=== PATIENT | female | born 1990 | race Caucasian/White ===

== ENCOUNTER 2017-02-08 10:07 | Emergency (ER) | payer OTHER ==
[2017-02-08 10:55] LABS: BASOPHILS % (AUTO) 0.5 %; EOSINOPHILS # (AUTO) 0.2 10^3/uL (0.0-0.7); EOSINOPHILS % (AUTO) 2.8 %; HCT - HEMATOCRIT 38.7 % (37.0-47.0); HGB - HEMOGLOBIN 12.7 g/dL (12.0-16.0); LYMPHOCYTES # (AUTO) 1.7 10^3/uL (1.5-3.5); LYMPHOCYTES % (AUTO) 29.5 %; MEAN CORPUSCULAR HEMOGLOBIN 26.3 pg (27.0-31.0); MEAN CORPUSCULAR HGB CONC 32.9 g/dL (32.0-36.0); MEAN CORPUSCULAR VOLUME 80.1 fL (81.0-99.0); MEAN PLATELET VOLUME 8.4 fL (7.9-10.8); MONOCYTES # (AUTO) 0.6 10^3/uL (0.0-1.0); MONOCYTES % (AUTO) 9.8 %; NEUTROPHILS # (AUTO) 3.3 10^3/uL (1.5-6.6); NEUTROPHILS % (AUTO) 57.4 %; RED BLOOD COUNT 4.83 10^6/uL (4.20-5.40); RED CELL DISTRIBUTION WIDTH 17.9 % (12.0-15.0); UNCORRECTED WHITE BLOOD COUNT 5.7 x10^3/uL; WHITE BLOOD COUNT 5.7 x10^3/uL (4.8-10.8)
[2017-02-08 11:06] LABS: CALCIUM 9.5 mg/dL (8.5-10.3); CREATININE 0.7 mg/dL (0.4-1.0); POTASSIUM 3.9 mmol/L (3.5-5.0)
--- NOTE | 2017-02-08 11:37 | ED Physician Documentation ---
History of Present Illness - Stated complaint Stated Complaint: CHEST PX/SOA - Chief complaint Chief Complaint: Cardiac - Additonal information Additional information: hx from pt 27 female s/p hyst no hx DVT PE or CAD, no known fhx DVT PE CAD either smoker no OCP recent long plane trip 3 days of chest tightness and sense of not being able to draw a deep breath, dry cough, no fever no abd pain, no NVD, no leg pain swelling also on a new diet pill which could be causing the sx Review of Systems Constitutional: denies: Fever, Chills Cardiac: reports: Chest pain / pressure. 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 - Present Medications Home Medications: Ambulatory Orders Medication Instructions Recorded Confirmed Phentermine HCl 15 mg PO DAILY 02/08/17 02/08/17 - Allergies Allergies/Adverse Reactions: Allergies Allergy/AdvReac Type Severity Reaction Status Date / Time codeine Allergy Intermediate Emesis Verified 01/22/16 15:00 - Social History Does the pt smoke?: Yes Smoking Status: Current every day smoker Does the pt drink ETOH?: Yes Does the pt have substance abuse?: No - Immunizations Immunizations are current?: Yes PD ED PE NORMAL - Vitals Vital signs reviewed: Yes - General General: Alert and oriented X 3 - Cardiac Cardiac: RRR, No murmur - Respiratory Respiratory: No respiratory distress, Clear bilaterally - Abdomen Abdomen: Soft, Non tender - Derm Derm: Normal color - Extremities Extremities: No deformity, No edema, No calf tenderness / cord - Neuro Neuro: Alert and oriented X 3, No motor deficit, No sensory deficit Results - Vitals Vitals: Vital Signs - 24 hr 02/08/17 02/08/17 02/08/17 10:09 10:17 10:54 Temperature 36.5 C Heart Rate 67 75 Respiratory 18 16 Rate Blood Pressure 110/77 118/78 Blood Pressure 121/74 [Left] Blood Pressure 113/76 [Right] O2 Saturation 100 99 02/08/17 02/08/17 12:08 13:43 Temperature Heart Rate 66 85 Respiratory 22 18 Rate Blood Pressure 126/92 H 119/75 Blood Pressure [Left] Blood Pressure [Right] O2 Saturation 100 100 Oxygen O2 Source Room air - EKG (time done) 1020 Rate: Rate (enter#) Rhythm: NSR Salome: Normal Intervals: Normal [place] QRS: Normal Ischemia: Normal ST segments - Labs Labs: Laboratory Tests 02/08/17 02/08/17 02/08/17 10:49 10:49 10:49 WBC 5.7 RBC 4.83 Hgb 12.7 Hct 38.7 MCV 80.1 L MCH 26.3 L MCHC 32.9 RDW 17.9 H Plt Count 184 MPV 8.4 Neut # 3.3 Lymph # 1.7 [place] # 0.6 Eos # 0.2 Baso # 0.0 Absolute Nucleated RBC 0.00 Nucleated RBCs 0.0 D-Dimer < 200.0 L Sodium 137 Potassium 3.9 Chloride 107 Carbon Dioxide 25 Anion Gap 5.0 L BUN 7 Creatinine 0.7 Estimated GFR (MDRD) 99 Glucose 94 Calcium 9.5 Troponin I 02/08/17 10:49 WBC RBC Hgb Hct MCV MCH MCHC RDW Plt Count MPV Neut # Lymph # [place] # Eos # Baso # Absolute Nucleated RBC Nucleated RBCs D-Dimer Sodium Potassium Chloride Carbon Dioxide Anion Gap BUN Creatinine Estimated GFR (MDRD) Glucose Calcium Troponin I < 0.04 PD MEDICAL DECISION MAKING - ED course ED course: d dimer neg but pt not low risk so does not adequately rule out PE - got CTPA which was neg also EKG and trop neg after sx > 24 hr rule out ACS not anemic no pna atelectasis effusion pneumo etc on CT may be due to the phentermine after all will dc with advice to dc same Departure - Departure Disposition: 01 Home, Self Care Clinical Impression: Chest pain Qualifiers: Chest pain type: unspecified Qualified Code(s): R07.9 - Chest pain, unspecified Dyspnea Qualifiers: Dyspnea type: unspecified Qualified Code(s): R06.00 - Dyspnea, unspecified Condition: Good Instructions: ED Chest Pain Atypical Unkn Cause Follow-Up: SHIELA MCKEON [Primary Care Provider] - Comments: All of your tests came back fine The EKG and tropnin does not suggest a heart attack The CT scan does not show a blood clot in your lung. The CT also did not show an aneurysm or tear of your aorta, fluid around your lungs or heart, or any other problems. Having ruled out all the lung and heart possibilities, i think your symptoms may be due to the phentermine I think it is safe for you to go home, please stop taking the phentermine Follow up with your PMD for a recheck this week. Return if worse or new symptoms develop Forms: Activity restrictions
[2017-02-08] MEDS ORDERED: IOPAMIDOL-300 100 ML VIAL IVP ONE (12:07)
--- NOTE | 2017-02-08 12:42 | CT Preliminary Report ---
Exam: CT Chest Angio (PE) IMPRESSION: 1. No evidence of pulmonary embolus, aortic aneurysm or aortic dissection. 2. Clear lungs. No acute consolidation. 3. No acute osseous abnormalities. [facility] SITE ID: [id number]
--- NOTE | 2017-02-08 12:45 | CT Report ---
EXAM: CT ANGIOGRAM CHEST EXAM DATE: 02/08/2017 12:06 PM. CLINICAL HISTORY: Chest pain. Shortness of air. Smoker. Recent long plane flight. COMPARISON: None. TECHNIQUE: Routine helical imaging was performed through the chest in the pulmonary arterial phase. I V Contrast: 100 cc of Isovue-300. Reconstructions: Coronal 3-D MIP reconstructions.Sagittal and coron al. In accordance with CT protocol optimization, one or more of the following dose reduction techniques w ere utilized for this exam: automated exposure control, adjustment of mA and/or KV based on patient s ize, or use of iterative reconstructive technique. FINDINGS: Pulmonary Arteries: Diagnostic quality: Adequate through the segmental arteries. No evidence of acute or chronic pulmonar y emboli. Main pulmonary artery is prominent. Lungs/Pleura: No consolidation. No vascular congestion. No pneumothorax. No endobronchial obstruction . Mediastinum: The visualized thyroid gland is unremarkable. No enlarged mediastinal or hilar lymph nod es. Anterior mediastinal soft tissue density may represent residual thymic tissue. No significant con cave contour, displacement or mass effect. Heart size is normal. Thoracic Aorta: Unremarkable. Upper Abdomen: Unremarkable. Other: No acute osseous abnormalities are identified. Bilateral breast implants are present. IMPRESSION: 1. No evidence of pulmonary embolus, aortic aneurysm or aortic dissection. 2. Clear lungs. No acute consolidation. 3. No acute osseous abnormalities. [facility] Referring Provider Line: [phone] SITE ID: [id number]
[2017-02-08 13:44] VITALS: BP 119/75
== END 2017-02-08 14:18 | disposition home or self-care (01) ==
LOC: ED 10:07
DX: R07.9 Chest pain, unspecified (principal); R06.00 Dyspnea, unspecified; F17.200 Nicotine dependence, unspecified, uncomplicated
CPT/HCPCS: 36415; 71275; 80048; 84484; 85025; 85379; 93005; 99284; Q9967

== ENCOUNTER 2018-03-28 19:14 | Emergency (ER) | payer OTHER ==
--- NOTE | 2018-03-28 20:12 | ED Physician Documentation ---
PD HPI CHEST PAIN - Stated complaint Stated Complaint: TIGHT CHEST - Chief complaint Chief Complaint: Cardiac - History obtained from History obtained from: Patient - History of Present Illness Timing - onset: How many days ago (3) Timing - duration: Days Timing - details: Gradual onset, Constant, Waxing and waning Quality: Tightness Location: Substernal Radiation: Other (no radiation) Improved by: Nothing Worsened by: Other (no exacerbating factors) Associated symptoms: No: Shortness of air, Diaphoresis, Nausea, Vomiting, Feeling faint / dizzy, General Weakness, Palpitations, Cough Similar symptoms before: Has not had sx before Recently seen: Not recently seen - Additional information Additional information: patient complains of three days of chest tightness and heaviness. She also notices that when she drinks liquids, she has a burning sensation in her midline chest which she says is like reflux. She denies fevers, denies sweats. Review of Systems Constitutional: reports: Reviewed and negative Cardiac: reports: Chest pain / pressure. 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 - Present Medications Home Medications: Ambulatory Orders Medication Instructions Recorded Confirmed Lidocaine Viscous 2% [Xylocaine 15 ml MM QID PRN #1 bottle 03/28/18 Viscous 2%] - Allergies Allergies/Adverse Reactions: Allergies Allergy/AdvReac Type Severity Reaction Status Date / Time codeine Allergy Intermediate Emesis Verified 03/28/18 19:33 - Social History Does the pt smoke?: Yes Smoking Status: Current every day smoker Does the pt drink ETOH?: Yes Does the pt have substance abuse?: No - Immunizations Immunizations are current?: Yes PD ED PE NORMAL - Vitals Vital signs reviewed: Yes - General General: Alert and oriented X 3, No acute distress, Well developed/nourished - Cardiac Cardiac: RRR, No murmur - Respiratory Respiratory: No respiratory distress, Clear bilaterally - Abdomen Abdomen: Soft, Non tender - Extremities Extremities: No edema Results - Vitals Vitals: Oxygen O2 Source Room air - EKG (time done) No standard instances Rate: Rate (enter#) (74) Rhythm: NSR Ewing: Normal Intervals: Normal [place] QRS: Normal Ischemia: Normal ST segments - Labs Labs: Laboratory Tests 03/28/18 03/28/18 03/28/18 21:02 21:02 21:02 WBC 9.1 RBC 4.40 Hgb 13.8 Hct 40.9 MCV 93.0 MCH 31.5 H MCHC 33.8 RDW 12.3 Plt Count 177 MPV 9.5 Neut # (Auto) 6.1 Lymph # (Auto) 2.1 [place] # (Auto) 0.7 Eos # (Auto) 0.2 Baso # (Auto) 0.1 Absolute Nucleated RBC 0.01 Nucleated RBC % 0.1 Sodium 136 Potassium 3.3 L Chloride 104 Carbon Dioxide 28 Anion Gap 4.0 L BUN 11 Creatinine 0.6 Estimated GFR (MDRD) 117 Glucose 105 H Calcium 8.9 Troponin I < 0.04 - Rads (name of study) chest xray Radiology: Prelim report reviewed, See rad report PD MEDICAL DECISION MAKING - ED course Complexity details: reviewed results, re-evaluated patient, considered differential, d/w patient - Sepsis Event Vital Signs: Oxygen O2 Source Room air Departure - Departure Disposition: 01 Home, Self Care Clinical Impression: Chest pain Qualifiers: Chest pain type: unspecified Qualified Code(s): R07.9 - Chest pain, unspecified Condition: Good Instructions: ED Chest Pain Atypical Unkn Cause Follow-Up: SHIELA MCKEON [Primary Care Provider] - Prescriptions: Lidocaine Viscous 2% [Xylocaine Viscous 2%] 15 ml MM QID PRN #1 bottle PRN Reason: throat/chest burning Comments: Your potassium was a little low tonight (the lower end of the normal range is 3.5; your result was 3.3). This is not low enough to cause symptoms or concern at this time, but your doctor might want to recheck this level within the next few weeks. Discharge Date/Time: 03/28/18 21:53
[2018-03-28] MEDS ORDERED: MAG HYDROX/AL HYDROX/SIMETH 30 ML UDC PO STA (20:32)
[2018-03-28] MEDS ORDERED: LIDOCAINE VISCOUS 2% 15 ML UDC MM STA (20:32)
[2018-03-28 21:08] LABS: BASOPHILS # (AUTO) 0.1 10^3/uL (0.0-0.1); BASOPHILS % (AUTO) 0.6 %; EOSINOPHILS # (AUTO) 0.2 10^3/uL (0.0-0.7); EOSINOPHILS % (AUTO) 1.8 %; HGB - HEMOGLOBIN 13.8 g/dL (12.0-16.0); LYMPHOCYTES # (AUTO) 2.1 10^3/uL (1.5-3.5); LYMPHOCYTES % (AUTO) 23.1 %; MEAN CORPUSCULAR HEMOGLOBIN 31.5 pg (27.0-31.0); MEAN CORPUSCULAR HGB CONC 33.8 g/dL (32.0-36.0); MEAN PLATELET VOLUME 9.5 fL (7.9-10.8); MONOCYTES # (AUTO) 0.7 10^3/uL (0.0-1.0); MONOCYTES % (AUTO) 7.5 %; NEUTROPHILS # (AUTO) 6.1 10^3/uL (1.5-6.6); PLT - PLATELET COUNT 177 10^3/uL (130-450); RED CELL DISTRIBUTION WIDTH 12.3 % (12.0-15.0); WHITE BLOOD COUNT 9.1 x10^3/uL (4.8-10.8)
--- NOTE | 2018-03-28 21:08 | XRAY Report ---
Reason: chest pain Procedure Date: 03/28/2018 Accession Number: [id number] / [id number] Procedure: XR - Chest 2 View X-Ray CPT Code: 53078 FULL RESULT: EXAM: CHEST RADIOGRAPHY EXAM DATE: 03/28/2018 08:47 PM. CLINICAL HISTORY: Chest pain. COMPARISON: None. TECHNIQUE: 2 views. FINDINGS: Lungs/Pleura: No focal opacities evident. No pleural effusion. No pneumothorax. Normal volumes. Mediastinum: Heart and mediastinal contours are unremarkable. Other: None. IMPRESSION: Normal 2-view chest radiography. [facility]
[2018-03-28 21:16] LABS: CALCIUM 8.9 mg/dL (8.5-10.3); CREATININE 0.6 mg/dL (0.4-1.0)
[2018-03-28 22:23] VITALS: BP 107/62
== END 2018-03-28 21:53 | disposition home or self-care (01) ==
LOC: ED 19:14
DX: F17.200 Nicotine dependence, unspecified, uncomplicated (principal); R07.9 Chest pain, unspecified
CPT/HCPCS: 36415; 71046; 80048; 84484; 85025; 93005; 99283; A9270

== ENCOUNTER 2018-05-14 13:29 | Emergency (ER) | payer OTHER ==
[2018-05-14 14:08] LABS: BILIRUBIN,URINE NEGATIVE (NEGATIVE); GLUCOSE, URINE (UA) NEGATIVE (NEGATIVE); KETONES,URINE (UA) NEGATIVE (NEGATIVE); LEUKOCYTE ESTERASE, URINE SMALL (NEGATIVE); NITRITE,URINE NEGATIVE (NEGATIVE); OCCULT BLOOD,URINE MODERATE (NEGATIVE); PROTEIN,URINE NEGATIVE (NEGATIVE); UROBILINOGEN,URINE 0.2 (NORMAL) E.U./dL (NORMAL)
[2018-05-14 14:10] LABS: CLARITY,URINE HAZY (CLEAR)
--- NOTE | 2018-05-14 14:13 | ED Physician Documentation ---
History of Present Illness - Stated complaint Stated Complaint: FEMALE - Chief complaint Chief Complaint: General - History obtained from History obtained from: Patient - History of Present Illness Timing: Last night (Since last night she has had urinary burning and dysuria with frequency but no flank pain, fevers, or nausea or vaginal discharge.) Review of Systems Constitutional: denies: Fever, Chills GI: denies: Abdominal Pain, Nausea, Vomiting : reports: Dysuria, Hematuria PD PAST MEDICAL HISTORY - Past Medical History Past Medical History: Yes Endocrine/Autoimmune: None GI: Hemorrhoids Psych: Depression Musculoskeletal: None - Past Surgical History Past Surgical History: Yes 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, 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, 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 - Present Medications Home Medications: Ambulatory Orders Medication Instructions Recorded Confirmed Nitrofurantoin Monohyd/M-Cryst 100 mg PO BID #10 capsule 05/14/18 [Macrobid 100 mg Capsule] Phenazopyridine HCl [Pyridium] 200 mg PO TID PRN #6 tablet 05/14/18 - Allergies Allergies/Adverse Reactions: Allergies Allergy/AdvReac Type Severity Reaction Status Date / Time codeine Allergy Intermediate Emesis Verified 05/14/18 13:39 - Social History Does the pt smoke?: Yes Smoking Status: Current every day smoker Does the pt drink ETOH?: Yes Does the pt have substance abuse?: No - Immunizations Immunizations are current?: Yes - POLST Patient has POLST: No PD ED PE NORMAL - Vitals Vital signs reviewed: Yes - General General: Alert and oriented X 3, No acute distress - Abdomen Abdomen: Soft, Non tender - Back Back: No CVA TTP - Neuro Neuro: Alert and oriented X 3, Normal speech Results - Vitals Vitals: Vital Signs - 24 hr 05/14/18 13:37 Temperature 36.9 C Heart Rate 75 Respiratory 18 Rate Blood Pressure 125/83 H O2 Saturation 99 Oxygen O2 Source Room air - Labs Labs: Laboratory Tests 05/14/18 13:35 Urine Color YELLOW Urine Clarity HAZY Urine pH 6.0 Ur Specific [place] 1.025 Urine Protein NEGATIVE Urine Glucose (UA) NEGATIVE Urine Ketones NEGATIVE Urine Occult Blood MODERATE H Urine Nitrite NEGATIVE Urine Bilirubin NEGATIVE Urine Urobilinogen 0.2 (NORMAL) Ur Leukocyte Esterase SMALL H Urine RBC 6-10 H Urine WBC 11-25 H Ur Squamous Epith Cells MOD Squamous H Urine Bacteria Few Ur Microscopic Review INDICATED Urine Culture Comments NOT INDICATED Urine HCG, Qual NEGATIVE Departure - Departure Disposition: Home, Self Care Clinical Impression: Cystitis Condition: Good Record reviewed to determine appropriate education?: Yes Instructions: ED UTI Cystitis Female Prescriptions: Nitrofurantoin Monohyd/M-Cryst [Macrobid 100 mg Capsule] 100 mg PO BID #10 capsule Phenazopyridine HCl [Pyridium] 200 mg PO TID PRN #6 tablet PRN Reason: dysuria Comments: Call your doctor to arrange a follow-up appointment, make the next available appointment. In the interim, return anytime if worse or if new symptoms develop.
[2018-05-14 14:16] LABS: HCG UR QUAL NEGATIVE
[2018-05-14 14:26] LABS: BACTERIA,URINE Few /HPF (None Seen); SQUAMOUS EPITHELIAL CELL,UR MOD Squamous (<= Few)
[2018-05-14] MEDS ORDERED: PHENAZOPYRIDINE 100 MG TABLET PO STA (14:48)
[2018-05-14] MEDS ORDERED: NITROFURANTOIN MACRO 100 MG CAPSULE PO STA (14:48)
[2018-05-14 15:04] VITALS: BP 128/72
== END 2018-05-14 15:01 | disposition home or self-care (01) ==
LOC: ED 13:29
DX: N30.91 Cystitis, unspecified with hematuria (principal); F17.200 Nicotine dependence, unspecified, uncomplicated
CPT/HCPCS: 81001; 81025; 99283; A9270; 81003; 87086

== ENCOUNTER 2018-08-05 12:52 | Emergency (ER) | payer OTHER ==
[2018-08-05] MEDS ORDERED: TETANUS/DIPHTHERIA/PERTUSSIS 0.5 ML SYRINGE IM ONE (14:29)
[2018-08-05] MEDS ORDERED: BUFFERED LIDOCAINE 10 ML SYRINGE SUBQ STA (14:29)
--- NOTE | 2018-08-05 14:31 | ED Physician Documentation ---
PD HPI UPPER EXT INJURY - Stated complaint Stated Complaint: FINGER LAC - Chief complaint Chief Complaint: Laceration - History obtained from History obtained from: Patient - History of Present Illness Location: Left, Finger Type of injury: Laceration Where injury occurred: Home Timing - onset: Today (1240pm) - Additonal information Additional information: She cut the tip of her nondominant/left index finger with a crab meat processor at home just prior to arrival. Tetanus is unknown. 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 - Present Medications Home Medications: Ambulatory Orders Medication Instructions Recorded Confirmed No Known Home Medications 08/05/18 08/05/18 - Allergies Allergies/Adverse Reactions: Allergies Allergy/AdvReac Type Severity Reaction Status Date / Time codeine Allergy Intermediate Emesis Verified 08/05/18 13:05 - Social History Does the pt smoke?: Yes Smoking Status: Current every day smoker Does the pt drink ETOH?: Yes Does the pt have substance abuse?: No - Immunizations Immunizations are current?: Yes - POLST Patient has POLST: No PD ED PE NORMAL - Vitals Vital signs reviewed: Yes - General General: Alert and oriented X 3, No acute distress - Extremities Extremities: Other (The pulp of the left index finger there is a 1 cm laceration without neurovascular compromise.) - Neuro Neuro: Alert and oriented X 3, Normal speech Results - Vitals Vitals: Vital Signs - 24 hr 08/05/18 13:03 Temperature 36.8 C Heart Rate 65 Respiratory 20 Rate Blood Pressure 140/67 H O2 Saturation 100 Oxygen O2 Source Room air Procedures - Laceration (location) L 2nd finger Length in cm: 1 Wound type: Linear Neurovascular status: Sensory intact, Motor intact, Vascular intact Anesthesia: Lidocaine 1%, With bicarb Wound Preparation: Betadine, Irrigated copiously NS Skin layer closure: Nylon, Interrupted, Size #-0 - enter number (5-0), Sutures - enter # (4) Other: Tetanus booster given Complexity: Simple Departure - Departure Disposition: 01 Home, Self Care Clinical Impression: Laceration Condition: Good Record reviewed to determine appropriate education?: Yes Instructions: ED Laceration Ext Sutr Stap Tape Comments: Come back for any signs of infection which would include: Redness, swelling, drainage, increased pain, or fevers. Follow-up with your physician in 10-14 days for suture removal. Your blood pressure was elevated today on check into the emergency department. This does not mean that you have hypertension, it is a common phenomenon to come to the emergency department and have elevated blood pressure. I recommend that you see your primary care physician within the week to have it rechecked when you are feeling better.
[2018-08-05] MEDS ORDERED: BACITRACIN OINT TOP ONE (15:30)
[2018-08-05 15:34] VITALS: BP 122/75
== END 2018-08-05 15:35 | disposition home or self-care (01) ==
LOC: ED 12:52
DX: S61.211A Laceration without foreign body of left index finger without damage to nail, initial encounter (principal); W27.8XXA Contact with other nonpowered hand tool, initial encounter; Y93.G1 Activity, food preparation and clean up; Y92.009 Unspecified place in unspecified non-institutional (private) residence as the place of occurrence of the external cause; R03.0 Elevated blood-pressure reading, without diagnosis of hypertension; F17.200 Nicotine dependence, unspecified, uncomplicated; Z23 Encounter for immunization
CPT/HCPCS: 12001; 90471; 90715; 99282; 99283; A9270

== ENCOUNTER 2018-09-03 13:21 | Emergency (ER) | payer OTHER ==
[2018-09-03] MEDS ORDERED: BUTALB/ACETAM/CAFF 50/325/40MG TABLET PO STA (13:47)
--- NOTE | 2018-09-03 13:47 | ED Physician Documentation ---
PD HPI HEADACHE - Stated complaint Stated Complaint: HEADACHE - Chief complaint Chief Complaint: Neuro - History obtained from History obtained from: Patient - History of Present Illness Timing - onset: How many weeks ago (1) Timing - onset during: Rest Timing - duration: Weeks (1) Timing - details: Gradual onset Pain level max: 10 Pain level now: 7 Location: Back, Right Quality: Throbbing, Aching, Like head is exploding Associated symptoms: No: Fever, Stiff neck, Nausea, Vomiting, Weakness, Numbness, Syncope, Seizure, Eye pain, Vision changes Improved by: Other (Take Motrin without relief) Worsened by: Other (Nothing) Contributing factors: No: Anticoagulated, Possible carbon monoxide, Hypertension, Recent illness, Trauma Similar symptoms before: Has not had sx before Recently seen: Not recently seen Review of Systems Constitutional: denies: Fever, Chills GI: denies: Vomiting, Diarrhea : denies: Now EGA Skin: denies: Rash Musculoskeletal: denies: Neck pain, Back pain PD PAST MEDICAL HISTORY - Past Medical History Past Medical History: Yes Endocrine/Autoimmune: None GI: Hemorrhoids Psych: Depression Musculoskeletal: None - Past Surgical History Past Surgical History: Yes 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, 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, 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 - Present Medications Home Medications: Ambulatory Orders Medication Instructions Recorded Confirmed Butalb/Acetaminophen/Caffeine 1 cap PO Q6H PRN #14 capsule 09/03/18 [Fioricet 50-300-40 mg Capsule] - Allergies Allergies/Adverse Reactions: Allergies Allergy/AdvReac Type Severity Reaction Status Date / Time codeine Allergy Intermediate Emesis Verified 09/03/18 13:39 - Social History Does the pt smoke?: Yes Smoking Status: Current every day smoker Does the pt drink ETOH?: Yes Does the pt have substance abuse?: No - Immunizations Immunizations are current?: Yes - POLST Patient has POLST: No PD ED PE NORMAL - Vitals Vital signs reviewed: Yes - General General: Alert and oriented X 3, No acute distress - HEENT HEENT: PERRL, EOMI, Moist mucous membranes, Pharynx benign - Neck Neck: Supple, no meningeal sign - Cardiac Cardiac: RRR - Respiratory Respiratory: No respiratory distress, Clear bilaterally - Abdomen Abdomen: Soft, Non tender, Non distended - Back Back: No spinal TTP - Derm Derm: Warm and dry, No rash - Extremities Extremities: No calf tenderness / cord - Neuro Neuro: Alert and oriented X 3, 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, No motor deficit, No sensory deficit, Normal speech, Other (Normal cerebellar test) - Psych Psych: Normal mood, Normal affect Results - Vitals Vitals: Vital Signs - 24 hr 09/03/18 09/03/18 13:36 15:20 Temperature 36.5 C 36.5 C Heart Rate 83 78 Respiratory 16 18 Rate Blood Pressure 133/76 H 121/68 O2 Saturation 98 100 Oxygen O2 Source Room air - Rads (name of study) Head CT Radiology: Prelim report reviewed, EMP read contemporaneously, See rad report (Normal) PD MEDICAL DECISION MAKING - ED course Complexity details: reviewed results, re-evaluated patient, considered sachin summers, d/w patient ED course: 28-year-old female with a headache for the past week. Given Fioricet and headache resolved. Feels better. Negative head CT. Declines lumbar puncture at this time. I think that is reasonable in her case. Will prescribe Fioricet for home. Patient counseled regarding signs and symptoms for which I believe and urgent re-evaluation would be necessary. Patient with good understanding of and agreement to plan and is comfortable going home at this time This document was made in part using voice recognition software. While efforts are made to proofread this document, sound alike and grammatical errors may occur. Departure - Departure Disposition: 01 Home, Self Care Clinical Impression: Cephalalgia Qualifiers: Headache type: unspecified Headache chronicity pattern: acute headache Intractability: not intractable Qualified Code(s): R51 - Headache Condition: Good Instructions: ED Cephalgia Unspecified Follow-Up: SHIELA MCKEON [Primary Care Provider] - Within 1 week Prescriptions: Butalb/Acetaminophen/Caffeine [Fioricet 50-300-40 mg Capsule] 1 cap PO Q6H PRN #14 capsule PRN Reason: headache Comments: Use the medication as prescribed. Return if you worsen. Your head CT is normal today. Discharge Date/Time: 09/03/18 15:20
[2018-09-03 15:21] VITALS: BP 121/68
--- NOTE | 2018-09-04 12:52 | CT Report ---
Reason: sudden onset occipital headache x1 week Procedure Date: 09/03/2018 Accession Number: [id number] / [id number] Procedure: CT - Head W/O CPT Code: FULL RESULT: EXAM: CT HEAD EXAM DATE: 09/03/2018 02:16 PM. CLINICAL HISTORY: Sudden onset of occipital headache COMPARISON: None. TECHNIQUE: Multiaxial CT images were obtained from the foramen magnum to the vertex. Reformats: Sagittal and coronal. IV contrast: None. In accordance with CT protocol optimization, one or more of the following dose reduction techniques were utilized for this exam: automated exposure control, adjustment of mA and/or KV based on patient size, or use of iterative reconstructive technique. FINDINGS: Parenchyma: No intraparenchymal hemorrhage. No evidence of mass, midline shift, or CT findings of infarction. [place]-white differentiation is distinct. Extraaxial Spaces: Normal for age. No subdural or epidural collections identified. Ventricles: Normal in size and position. Sinuses and Orbits: Imaged paranasal sinuses, orbits, and mastoids show no significant abnormality. Bones: No evidence of fracture or calvarial defect. Other: None. IMPRESSION: Normal head CT. [facility]
== END 2018-09-03 15:20 | disposition home or self-care (01) ==
LOC: ED 13:21
DX: R51 Headache (principal); F17.200 Nicotine dependence, unspecified, uncomplicated
CPT/HCPCS: 70450; 99283; A9270

== ENCOUNTER 2019-01-01 22:54 | Emergency (ER) | payer OTHER ==
--- NOTE | 2019-01-02 | ED Physician Documentation ---
History of Present Illness - Stated complaint Stated Complaint: CONGESTION - Chief complaint Chief Complaint: General - History obtained from History obtained from: Patient - History of Present Illness Timing: How many weeks ago (4) Severity Comments: Cannot breathe through right nostril. Improved by: Nothing - Additonal information Additional information: This is a 28-year-old woman who about a month ago developed allergy symptoms and just has been unable to get rid of the congestion. She cannot breathe out of the right side of her nostril she has a pressure on that side of her face and shooting pains in the right forehead. Her throat feels like is very itchy. She went to see her primary care provider and was started on Zyrtec which she is been taking daily. They prescribed Singulair which she only took for a few days and she is been using Flonase but only in the left nostril because she cannot g et it into the right nostril. She then went back when things were not improving was placed on a Medrol Dosepak and given an antibiotic for 10 days. She thinks she finished the steroids about 3 weeks ago and the amoxicillin she finished 2 or 3 days ago. She did not really think that either 1 of them provided much relief. She is been using phenylephrine [id number] and when this first started she used Afrin for 3 or 4 days that seemed to help a little bit. She is been trying saline nasal sprays and has tried sinus rinse but cannot flush it all the way through because the right side is blocked. She denies any ear pain. She has not been short of breath. She is lived in the area for about 6 years but never had this severe of sinus issues. No fever.Denies visual changes. Review of Systems Constitutional: denies: Fever Eyes: reports: Reviewed and negative. denies: Decreased vision Ears: denies: Ear pain Nose: reports: Congestion Throat: reports: Sore throat Respiratory: denies: Dyspnea, Cough GI: reports: Diarrhea. 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 : None HEENT: None Psych: Depression Musculoskeletal: None Derm: None - Past Surgical History Past Surgical History: Yes General: Other /SURVEYOR OIL WELL DIRECTIONAL: section, 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, 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 - Present Medications Home Medications: Ambulatory Orders Medication Instructions Recorded Confirmed Butalb/Acetaminophen/Caffeine 1 cap PO Q6H PRN #14 capsule 09/03/18 [Fioricet 50-300-40 mg Capsule] Amox/Clav 875/125 [Augmentin] 1 each PO Q12H #20 tablet 01/02/19 Loratadine/Pseudoephedrine 1 each PO DAILY #30 tab.er.24h 01/02/19 [Claritin-D 24 Hour Tablet] RX: Ibuprofen 600 mg PO Q8HR #30 tablet 01/02/19 RX: predniSONE [Deltasone] 60 mg PO DAILY 5 Days #15 tablet 01/02/19 - Allergies Allergies/Adverse Reactions: Allergies Allergy/AdvReac Type Severity Reaction Status Date / Time codeine Allergy Intermediate Emesis Verified 01/01/19 23:02 - Social History Does the pt smoke?: Yes Smoking Status: Current every day smoker Does the pt drink ETOH?: Yes Does the pt have substance abuse?: No - Immunizations Immunizations are current?: Yes - POLST Patient has POLST: No PD ED PE NORMAL - Vitals Vital signs reviewed: Yes (Patient looks tired. She looks uncomfortable.) - General General: Alert and oriented X 3, No acute distress, Well developed/nourished - HEENT HEENT: Atraumatic, PERRL, EOMI, Ears normal, Moist mucous membranes, Pharynx benign, Other (The right nostril mucosa is very boggy with just a clear mucoid drainage noted. The nostril is occluded with the bogginess. No maxillary or frontal sinus tenderness but there is tenderness over the ethmoid sinuses and the bridge of the nose.) - Neck Neck: No adenopathy - Cardiac Cardiac: RRR, No murmur - Respiratory Respiratory: No respiratory distress, Clear bilaterally - Derm Derm: Normal color, Warm and dry - Neuro Neuro: Alert and oriented X 3, trap setter 2-12 intact, No motor deficit, No sensory deficit, Normal speech - Psych Psych: Normal mood, Normal affect Results - Vitals Vitals: Vital Signs - 24 hr 01/01/19 01/02/19 22:59 00:15 Temperature 36.4 C L Heart Rate 63 64 Respiratory 20 16 Rate Blood Pressure 139/96 H 116/87 H O2 Saturation 99 99 Oxygen O2 Source Room air PD MEDICAL DECISION MAKING - ED course Complexity details: d/w patient ED course: Patient has tried a multitude of things trying to get this right side of her nose to open up without success. When I have her start Claritin-D and use Afrin for the next 2 to 3 days while starting the Flonase. Also using ibuprofen as an anti-inflammatory. She has some tenderness across the bridge of her nose and headache shooting up into the right forehead I elected to treat her for subacute ethmoid sinusitis she was placed on prednisone 60 mg for 5 days and Augmentin 875 twice daily for 10 days. She is encouraged to use probiotics while on the antibiotics and for 2 weeks after. Follow-up with her provider on the [facility] if this does not break the cycle for referral to ENT. Departure - Departure Disposition: 01 Home, Self Care Clinical Impression: Acute sinusitis treated with antibiotics in the past 60 days Condition: Good Instructions: ED Sinusitis Abx Tx Follow-Up: SHIELA MCKEON [Primary Care Provider] - Prescriptions: RX: Ibuprofen 600 mg PO Q8HR #30 tablet Amox/Clav 875/125 [Augmentin] 1 each PO Q12H #20 tablet Loratadine/Pseudoephedrine [Claritin-D 24 Hour Tablet] 1 each PO DAILY #30 tab.er.24h RX: predniSONE [Deltasone] 60 mg PO DAILY 5 Days #15 tablet Comments: Stop the Zyrtec and try Claritin-D daily. Take ibuprofen 600 mg every 8 hours with food for the next 2 to 3 days.For the next 2 to 3 days and at the same time start the Flonase spray twice a day religiously using it 2 sprays in each nostril daily. Take the prednisone for 5 days and Augmentin antibiotic for 10 days. Take probiotics while you are on the antibiotics and for 2 weeks after. Steam can help open the sinuses especially with 3-4 drops of eucalyptus oil in it. Follow-up with your primary care provider if this is not improving for referral to ENT for further evaluation. Discharge Date/Time: 01/02/19 00:22
[2019-01-02] MEDS ORDERED: HYDROcod/ACET 5/325 Prepack 4 PO STA (00:13)
[2019-01-02 00:15] VITALS: BP 116/87
== END 2019-01-02 00:22 | disposition home or self-care (01) ==
LOC: ED 22:54
DX: J01.20 Acute ethmoidal sinusitis, unspecified (principal); F17.200 Nicotine dependence, unspecified, uncomplicated
CPT/HCPCS: 99283

== ENCOUNTER 2021-02-12 13:20 | Emergency (ER) | payer OTHER ==
[2021-02-12 13:27] VITALS: BP 119/78
--- NOTE | 2021-02-12 13:39 | ED Physician Documentation ---
History of Present Illness - Stated complaint Stated Complaint: left heel px - Chief complaint Chief Complaint: Ext Problem - Additonal information Additional information: 31-year-old female presents emergency department for evaluation of acute left heel pain. She reports that she is a daily runner but has not had any recent falls trauma or twist. She noticed last night when she is going to bed that her heel was hurting somewhat. It interrupted her sleep last night and today she found that she was unable to bear weight when walking on the left heel. She has no swelling or fever. No open sores or lesions. No history of pain in the foot or heel previous. 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 : None HEENT: None Psych: Depression Musculoskeletal: None Derm: None - Past Surgical History Past Surgical History: Yes General: 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: section, 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, 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 - Present Medications Home Medications: Ambulatory Orders Medication Instructions Recorded Confirmed Butalb/Acetaminophen/Caffeine 1 cap PO Q6H PRN #14 capsule 09/03/18 [Fioricet 50-300-40 mg Capsule] Amox/Clav 875/125 [Augmentin] 1 each PO Q12H #20 tablet 01/02/19 Ibuprofen 600 mg PO Q8HR #30 tablet 01/02/19 Loratadine/Pseudoephedrine 1 each PO DAILY #30 tab.er.24h 01/02/19 [Claritin-D 24 Hour Tablet] predniSONE [Deltasone] 60 mg PO DAILY 5 Days #15 tablet 01/02/19 - Allergies Allergies/Adverse Reactions: Allergies Allergy/AdvReac Type Severity Reaction Status Date / Time codeine Allergy Intermediate Emesis Verified 02/12/21 13:27 - Social History Does the pt smoke?: Yes Smoking Status: Current every day smoker Does the pt drink ETOH?: Yes Does the pt have substance abuse?: No - Immunizations Immunizations are current?: Yes - POLST Patient has POLST: No PD ED PE EXPANDED - General General: Alert, No acute distress - Extremities Extremities: Left foot (tenderness palpation of left heel. Normal achilles exam, no malleolar tenderness. Pain with weight bearing left heel. ) Results - Vitals Vitals: Vital Signs - 24 hr 02/12/21 13:24 Temperature 36.7 C Heart Rate 63 Respiratory 16 Rate Blood Pressure 119/78 O2 Saturation 100 Oxygen O2 Source Room air - Rads (name of study) left heel Radiology: Final report received (no fx; + heel spur) PD MEDICAL DECISION MAKING - ED course Complexity details: reviewed results, re-evaluated patient, d/w patient ED course: 31-year-old female presents the ER with acute left heel pain in the absence of trauma. X-ray does show a heel spur on the left side. I suspect that she may also has an inflamed plantar fascia. We discussed routine care management of this. She will discuss with [facility] the need for referral to podiatry. Emergent return precautions were discussed. Departure - Departure Disposition: 01 Home, Self Care Clinical Impression: Pain of left heel Heel spur Qualifiers: Laterality: left Qualified Code(s): M77.32 - Calcaneal spur, left foot Condition: Stable Record reviewed to determine appropriate education?: Yes Instructions: Heel Pain, Plantar Fasciitis Comments: Estefani you are seen in the ER today for acute left heel Pain. As we discussed the x-ray shows that you have a heel spur which is a bony growth on the bottom of your heel. This can cause pain as well as inflamed the plantar fascia tendon. I do recommend that you tape the bottom of your foot as discussed to help support the plantar fascia. Avoid Impact exercises as this will likely worsen the pain. You would benefit from referral to a foot doctor for further ev aluation of this. Please take ibuprofen with food 3 times a day for the pain. I recommend 600 mg of ibuprofen or 500 mg of Tylenol.
--- NOTE | 2021-02-12 14:06 | XRAY Report ---
PROCEDURE: Foot 2 View LT INDICATIONS: left heel pain TECHNIQUE: 2 views of the foot were acquired. COMPARISON: None FINDINGS: Bones: No fractures or dislocations. No suspicious bony lesions. Dorsal and plantar calcaneal bone spurs. Soft tissues: No tibiotalar joint effusion. Achilles tendon appears normal. IMPRESSION: Calcaneal bone spurs. Reviewed by: Jeimy Sen MD, PhD on 02/12/2021 2:05 PM PDT Approved by: Jeimy Sen MD, PhD on 02/12/2021 2:05 PM PDT Station ID: [id number]
== END 2021-02-12 14:30 | disposition home or self-care (01) ==
LOC: ED 13:20
DX: M79.672 Pain in left foot (principal); M77.32 Calcaneal spur, left foot; F17.200 Nicotine dependence, unspecified, uncomplicated
CPT/HCPCS: 99282; 99283

== ENCOUNTER 2022-01-26 08:00 | Outpatient (CLI) | payer OTHER ==
[2022-01-26 22:27] LABS: BACTERIAL VAGINOSIS DNA NEGATIVE (NEGATIVE); CANDIDA GLABRATA DNA NEGATIVE (NEGATIVE); CANDIDA GROUP DNA NEGATIVE (NEGATIVE); CANDIDA KRUSEI DNA NEGATIVE (NEGATIVE); TRICHOMONAS VAGINALIS DNA NEGATIVE (NEGATIVE)
== END 2022-01-26 23:59 | disposition home or self-care (01) ==
LOC: LAB.N 08:00
PROVIDERS: ATTEND Emergency Medicine
DX: N76.0 Acute vaginitis (principal)
CPT/HCPCS: 81514; 87077; 87086; 87181

== ENCOUNTER 2022-03-29 21:52 | Emergency (ER) | payer OTHER ==
--- NOTE | 2022-03-29 22:46 | XRAY Report ---
PROCEDURE: Foot 3 View LT INDICATIONS: lft heel pain TECHNIQUE: 3 views of the foot were acquired. COMPARISON: 02/12/2021. FINDINGS: Bones: No fractures or dislocations. Small plantar and posterior calcaneal enthesophytes are redemo nstrated. No suspicious bony lesions. Soft tissues: No tibiotalar joint effusion. Achilles tendon appears normal. IMPRESSION: 1. No fracture or dislocation. 2. Small plantar and posterior calcaneal enthesophytes are nonspecific but may be associated with andres ntar fasciitis or retrocalcaneal bursitis. Reviewed by: Harjeet Davis MD on 03/29/2022 10:44 PM PDT Approved by: Harjeet Davis MD on 03/29/2022 10:44 PM PDT Station ID: [id number]
--- NOTE | 2022-03-29 22:55 | ED Physician Documentation ---
History of Present Illness - Stated complaint Stated Complaint: LT HEEL PX - Chief complaint Chief Complaint: Ext Problem - Additonal information Additional information: Left heel pain. Past medical significant for known left heel osteophytes previously diagnosed with left-sided plantar fasciitis. Reports is followed with podiatry. Was feeling improved however today struck the medial aspect of the left side of her foot while walking. [place] pain and discomfort along the medial aspect of her foot since that time. 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 : None HEENT: None Psych: Depression Musculoskeletal: None Derm: None - Past Surgical History Past Surgical History: Yes General: Other /BASKET WEAVER: section, 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, 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 - Present Medications Home Medications: Ambulatory Orders Medication Instructions Recorded Confirmed Butalb/Acetaminophen/Caffeine 1 cap PO Q6H PRN #14 capsule 09/03/18 [Fioricet 50-300-40 mg Capsule] Amox/Clav 875/125 [Augmentin] 1 each PO Q12H #20 tablet 01/02/19 Ibuprofen 600 mg PO Q8HR #30 tablet 01/02/19 Loratadine/Pseudoephedrine 1 each PO DAILY #30 tab.er.24h 01/02/19 [Claritin-D 24 Hour Tablet] predniSONE [Deltasone] 60 mg PO DAILY 5 Days #15 tablet 01/02/19 - Allergies Allergies/Adverse Reactions: Allergies Allergy/AdvReac Type Severity Reaction Status Date / Time codeine Allergy Intermediate Emesis Verified 03/29/22 21:56 - Social History Does the pt smoke?: Yes Smoking Status: Current every day smoker Does the pt drink ETOH?: Yes Does the pt have substance abuse?: No - Immunizations Immunizations are current?: Yes - POLST Patient has POLST: No PD ED PE NORMAL - General General: Alert and oriented X 3 - HEENT HEENT: Atraumatic - Respiratory Respiratory: No respiratory distress - Extremities Extremities: No deformity, Other (There is tenderness to palpation along the medial aspect of the left calcaneus. There is no tenderness to palpation at the base of the fifth metatarsal, over the navicular bone, at either of the malleoli. DP and PT pulses are palpable. Normal sensation in all dermatomes to the foot.) Results - Vitals Vitals: Vital Signs - 24 hr 03/29/22 21:56 Temperature 36.5 C Heart Rate 80 Respiratory 16 Rate Blood Pressure 122/76 O2 Saturation 99 Oxygen O2 Source Room air PD MEDICAL DECISION MAKING - ED course Complexity details: reviewed results, d/w patient ED course: Patient is 32-year-old female presenting to the emergency department with acute left-sided heel pain in setting of recent diagnosis of osteophytes to the left heel and associated plantar fasciitis. X-rays negative for significant traumatic injury however redemonstration of previously identified osteophytes. Patient was offered medication for pain control in the emergency department which was declined. Will provide patient with crutches. Will encourage her to continue taping her foot as appropriate for plantar FI. Will encourage careful follow-up with primary care. Additionally instructions given for use of alternating Motrin and Tylenol, ice packs, ice and elevation as needed. Otherwise clear return precautions and follow-up instructions given prior to discharge. Departure - Departure Disposition: 01 Home, Self Care Comments: Thank you for allowing us to care for you today at [facility]. The x-rays taken today redemonstrated your previously identified osteophytes, also known as bone spurs, but there was no indication of fracture or other serious traumatic injury. I like you to continue taping the base of your foot as you have been. I will be providing you with a pair of crutches. Please use these as needed for pain control. I do recommend regular alternating doses of Tylenol and ibuprofen. You can take 500 mg of Tylenol, followed by 600 mg of ibuprofen, every 4 hours as needed. Ice packs and elevating your injured heel is also an excellent strategy for decreasing swelling and thereby decreasing pain. 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 If it anytime you have any new or worsening symptoms please not hesitate to return.
[2022-03-29 23:09] VITALS: BP 130/71
== END 2022-03-29 23:08 | disposition home or self-care (01) ==
LOC: ED 21:52
DX: M77.32 Calcaneal spur, left foot (principal); F17.200 Nicotine dependence, unspecified, uncomplicated
CPT/HCPCS: 99282; 99283

== ENCOUNTER 2022-07-21 17:46 | Outpatient (CLI) | payer OTHER ==
--- NOTE | 2022-07-22 09:30 | XRAY Report ---
PROCEDURE: Foot 3 View LT INDICATIONS: L FOOT PX TECHNIQUE: 3 views of the foot were acquired. COMPARISON: 03/29/2022 and 02/12/2021 FINDINGS: Bones: No acute fractures or dislocations. Interval postsurgical changes from osteotomy of the dist al left first metatarsal with bunionectomy. Overlying soft tissue swelling. No evidence for hardware complication. No suspicious bony lesions. Plantar and retrocalcaneal enthesophytes redemonstrated. Soft tissues: No tibiotalar joint effusion. Achilles tendon appears normal. IMPRESSION: Postsurgical changes of distal left first metatarsal osteotomy and bunionectomy. No evidence for hard schneider loosening or failure. Overlying soft tissue swelling. Calcaneal enthesophytes. Reviewed by: Sonu Orourke MD on 07/22/2022 9:29 AM PST Approved by: Sonu Orourke MD on 07/22/2022 9:29 AM PST Station ID: [id number]
== END 2022-07-21 23:59 | disposition home or self-care (01) ==
LOC: DI.N 17:46
PROVIDERS: ATTEND Family Medicine
DX: M79.672 Pain in left foot (principal)

== ENCOUNTER 2023-09-20 09:23 | Emergency (ER) | payer OTHER ==
[2023-09-20 09:43] VITALS: O2SAT 98
--- NOTE | 2023-09-20 10:00 | ED Physician Documentation ---
PD HPI Fall - Stated complaint Stated Complaint: [place] PX - Chief complaint Chief Complaint: Trauma Ch/Bk - History obtained from History obtained from: Patient - Additional information Additional information: Patient is a 33-year-old female presenting for evaluation of back and left hip pain after a fall on Tuesday. Patient states she slipped on the stairs due to a pair of socks she was wearing. She landed on her left hip. She did not hit her head or have LOC. She believes she slid down approximately 6 steps. She states that she has been gradually having worsening pain to the back and left hip area. She has tried lidocaine patches and acetaminophen without any significant improvement. She also reports having intermittent headache as well that is improved with acetaminophen but does come back once that wears off. She does not take a blood thinner. She denies syncope. Review of Systems Constitutional: denies: Fever Cardiac: denies: Chest pain / pressure Respiratory: denies: Dyspnea GI: denies: Abdominal Pain : denies: Dysuria, Incontinent Musculoskeletal: reports: Back pain Neurologic: reports: Headache. 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: section, 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, 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, Breast implants - Present Medications Home Medications: Ambulatory Orders Medication Instructions Recorded Confirmed Cyclobenzaprine [Flexeril] 10 mg PO TID PRN #20 tablet 09/20/23 Lidocaine Patch 5% [Lidoderm Patch] 1 patch TOP DAILY PRN #10 patch 09/20/23 Loratadine/Pseudoephedrine 1 each PO DAILY PRN 09/20/23 09/20/23 [Claritin-D 24 Hour Tablet] Multivitamin 1 each PO DAILY 09/20/23 09/20/23 - Allergies Allergies/Adverse Reactions: Allergies Allergy/AdvReac Type Severity Reaction Status Date / Time codeine Allergy Intermediate Emesis Verified 09/20/23 09:33 - Social History Does the pt smoke?: Yes Smoking Status: Current every day smoker Does the pt drink ETOH?: Yes Does the pt have substance abuse?: No - Immunizations Immunizations are current?: Yes - POLST Patient has POLST: No PD ED PE NORMAL - General General: Alert and oriented X 3, No acute distress, Well developed/nourished - HEENT HEENT: Atraumatic, PERRL, EOMI, Moist mucous membranes, Pharynx benign - Neck Neck: Supple, no meningeal sign, No bony TTP, C-Spine cleared by NEXUS criteria - Cardiac Cardiac: RRR, Strong equal pulses - Respiratory Respiratory: No respiratory distress, Clear bilaterally - Abdomen Abdomen: Normal bowel sounds, Soft, Non tender, Non distended - Derm Derm: Warm and dry - Extremities Extremities: Other (Yellowed bruising to left hip with pain on range of motion, mild tenderness to low thoracic high lumbar region, no step-offs, left paralumbar tenderness to palpation) - Neuro Neuro: Alert and oriented X 3, No motor deficit, No sensory deficit, Normal speech Results - Vitals Vitals: Vital Signs - 24 hr 09/20/23 09/20/23 09:34 11:14 Temperature 36.8 C 36.6 C Heart Rate 84 74 Respiratory 16 16 Rate Blood Pressure 132/85 H 118/69 O2 Saturation 98 98 Oxygen O2 Source Room air PD Medical Decision Making - ED course Complexity details: reviewed results, d/w patient ED course: Patient is a 33-year-old female presenting for evaluation after a slip on stairs a few days ago. No head injury. Has contusion to the left hip and reports pain to this area as well as to the back. No red flag signs or symptoms in regards to her back pain.Normal neuroexam. X-ray of the thoracolumbar region as well as left hip are obtained and reviewed I see no acute fracture. She is feeling better here after some pain medication. Reports that her primary complaint is feeling some tightness in the low back region. We discussed options for treatment and she is agreeable to continuing with anti-inflammatories, lidocaine patches we will also add on a muscle relaxer. I offered crutches but she declines. She understands need for follow-up with PCP as well as concerning symptoms to return for. Departure - Departure Disposition: 01 Home, Self Care Clinical Impression: Fall down stairs, Contusion of left hip, initial encounter, Back strain, Headache Condition: Stable Instructions: ED Contusion Hip, ED Neck Back Pain General Prescriptions: Cyclobenzaprine [Flexeril] 10 mg PO TID PRN #20 tablet PRN Reason: Spasms Lidocaine Patch 5% [Lidoderm Patch] 1 patch TOP DAILY PRN #10 patch PRN Reason: pain Comments: The x-rays of your back and left hip do not show any broken or out of place bones. You do appear to have a muscle strain though in the low back. I have sent a prescription for lidocaine patches and a muscle relaxer to [facility] in [place]. Continue with ice versus heat, rest. I would recommend close follow-up with your primary care provider. Return to the ER with any worsening symptoms. Forms: PCP List, Activity restrictions Discharge Date/Time: 09/20/23 11:19
[2023-09-20] MEDS: HYDROcod/ACETAM 5/325 MG TABLET PO STA (10:03)
--- NOTE | 2023-09-20 10:58 | XRAY Report ---
PROCEDURE: Hip w/Pelvis 2-3V LT INDICATIONS: fall/pain/bruising TECHNIQUE: 2 views of the hip were acquired. COMPARISON: None. FINDINGS: Bones: Mild degenerative changes. No displaced fracture or dislocation. Soft tissues: Indeterminate location linear density is seen projecting over the left lower quadrant. IMPRESSION: Mild bilateral degenerative changes. No acute radiographic abnormality. If there is high concern for occult injury, consider repeat radiography or cross-sectional imaging. Indeterminate linear hyperdensity seen projecting over the left lower quadrant. Reviewed by: Cliff Fleming MD on 09/20/2023 10:57 AM PST Approved by: Cliff Fleming MD on 09/20/2023 10:57 AM [facility] Station ID: [id number]
--- NOTE | 2023-09-20 11:00 | XRAY Report ---
PROCEDURE: ThoracoLumbar 2+V INDICATIONS: fall/pain TECHNIQUE: 2 views acquired of the thoracolumbar spine. COMPARISON: Noness FINDINGS: Bones: Minimal degenerative changes in the lower lumbar spine. Vertebral body heights are well-mainta ined. No traumatic subluxation. Soft tissues: A linear density projects over the sacrum. IMPRESSION: Minimal lower lumbar degenerative changes. No acute radiographic abnormality. If there is high concer n for occult injury, consider repeat radiography or cross-sectional imaging. Reviewed by: Cliff Fleming MD on 09/20/2023 10:58 AM [facility] Approved by: Cliff Fleming MD on 09/20/2023 10:58 AM [facility] Station ID: [id number]
[2023-09-20 11:19] VITALS: BP 118/69
== END 2023-09-20 11:19 | disposition home or self-care (01) ==
LOC: ED 09:23
DX: S70.02XA Contusion of left hip, initial encounter (principal); S39.012A Strain of muscle, fascia and tendon of lower back, initial encounter; W10.9XXA Fall (on) (from) unspecified stairs and steps, initial encounter; R51.9 Headache, unspecified; F17.200 Nicotine dependence, unspecified, uncomplicated
CPT/HCPCS: 72080; 73502; 99284; A9270